=== PATIENT | female | born 1990 | race Caucasian/White ===

== ENCOUNTER 2016-08-30 03:14 | Inpatient (IN) | payer OTHER ==
[~2016-08-30] VITALS: Ht 154.9 cm; Wt 73.2 kg
[2016-08-30 03:25] VITALS: BP 115/58; PULSE 78; RESP 18
[2016-08-30 03:39] VITALS: Ht 154.9 cm; Wt 73.2 kg
[2016-08-30] MEDS ORDERED: OXYTOCIN 30 UNITS/LR 500 ML IV PRN (04:30)
[2016-08-30] MEDS ORDERED: OXYTOCIN 30 UNITS/LR 500 ML IV SCH ×3 (04:30→23:57)
[2016-08-30] MEDS ORDERED: MISOPROSTOL 200 MCG TAB PR PRN (04:30)
[2016-08-30] MEDS ORDERED: LIDOCAINE 1% (MPF) 30 ML INJ INJ PRN (04:30)
[2016-08-30] MEDS ORDERED: CARBOPROST 250 MCG INJ IM PRN (04:30)
[2016-08-30] MEDS ORDERED: LACTATED RINGER'S 1,000 ML IV PRN (04:30)
[2016-08-30] MEDS ORDERED: IBUPROFEN 600 MG TAB PO PRN (04:30)
[2016-08-30] MEDS ORDERED: BUTORPHANOL 2 MG INJ IV PRN (04:30)
[2016-08-30] MEDS ORDERED: METHYLERGONOVINE 0.2 MG INJ IM PRN (04:30)
[2016-08-30] MEDS: LACTATED RINGER'S 1,000 ML IV SCH ×3 (04:46→20:16)
[2016-08-30 05:44] LABS: ADD SCAN DIFF NO
--- NOTE | 2016-08-30 05:47 | TRIAGE ---
OB Triage Datetime Report Generated by CPN: 08/30/2016 05:47 Datetime: 08/30/2016 05:03 Monitor Mode: Palpation Quality: Moderate Resting Tone [place]: Relaxed Datetime: 08/30/2016 05:00 Stage of : Labor Labor Evaluation Frequency: 3-6 Monitor Mode: External Duration (sec)2399: 70-180 Quality: Moderate Pattern: Normal: <= 5 Contractions in 10 Minutes Resting Tone [place]: Relaxed Heart Rate FHR Baseline Rate: 145 Monitor Mode: External US Variability: Moderate 6-25 bpm Accelerations: 15X15 Decelerations: Early Pain Relief Measures: Comfort Measures Datetime: 08/30/2016 04:29 Stage of : Labor Assessment Type: Admission Assessment Maternal Assessment Level of Consciousness: Fully Conscious DTR's/Clonus: DTRs 2+; No Clonus Headache: Denies Blurred Vision: No Respiratory Effort: Unlabored; Regular Rhythm; Equal Expansion Breath Sounds, Left: Clear and Equal Breath Sounds, Right: Clear and Equal Nausea/Vomiting: Denies RUQ Epigastric Pain: Denies Lower Extremities Edema: None Degree: None Upper Extremities Edema: None Degree: None Facial Edema: None Temperature Route: Oral Fall Risk Assessment History of Falling: (0) No Secondary Diagnosis: (0) No Ambulatory Aid: (0) Bedrest/Nurse Assist IV Therapy: (0) No Gait: (0) Normal/Bedrest/Immobile Mental Status: (0) Oriented to Own Ability Fall Score: 0 Fall Risk Score Definition: No Risk: No action required Pain Assessment Pain Scale: 8 Pain Presence: Intermittent Pain Type: Cramping Pain Location: Abdomen Pain Goal: 4 Pain Relief Measures: Comfort Measures Membrane Status: Intact Datetime: 08/30/2016 04:20 Time of Arrival: 08/30/2016 04:20 EGA: 40.1 Arrived By: Ambulatory Arrived From: Other Unit in Hospital Datetime: 08/30/2016 04:19 Labor Evaluation Frequency: 2-5 Monitor Mode: External Duration (sec)2399: 60-100 Quality: Mild Pattern: Normal: <= 5 Contractions in 10 Minutes Resting Tone [place]: Relaxed Heart Rate FHR Baseline Rate: 135 Monitor Mode: External US FHR Baseline Changes: No Baseline Change Variability: Moderate 6-25 bpm Accelerations: 15X15 Decelerations: None Category: Category I Comments: Periods of loss of FHR contact d/t pt self-repositioning Datetime: 08/30/2016 03:47 Labor Evaluation Frequency: 2-5.5 Monitor Mode: External Duration (sec)2399: 70-120 Quality: Mild Pattern: Normal: <= 5 Contractions in 10 Minutes Resting Tone [place]: Relaxed Interventions: Sterile Vaginal Exam Heart Rate FHR Baseline Rate: 145 Monitor Mode: External US FHR Baseline Changes: No Baseline Change Variability: Moderate 6-25 bpm Decelerations: None Category: Category I Datetime: 08/30/2016 03:30 Stage of : OB Triage Time of Arrival: 08/30/2016 03:10 EGA: 40.1 Arrived By: Wheelchair Arrived From: Home Chief Complaint: CONTRACTIONS Movement: Present Contractions: Regular Time Contractions Began: 08/29/2016 22:30 Contractions: q5 minutes Rupture of Membranes: Denies Vaginal Bleeding: None Vaginal Discharge: Denies Recent Sexual Intercouse: Denies Abdominal Trauma: Not Applicable Patient Complaints: Contractions Additional Patient Complaints: CONTRACTIONS SINCE 2 DAYS AGO, PT REPORTS CONTRACTIONS BECOME STRON ABHILASH AND Q5 MINUTES SINCE 08/29 @ 2230 Time Provider Notified: 08/30/2016 03:40 Provider Notified: MD FITZGERALD Initial Plan: OBSERVATION, VE Vaginal Exam Dilatation (cms): 1.0 Effacement (%): 60 Station: -2 Exam By: MG Cervix, Position: Midposition Datetime: 08/30/2016 03:26 Stage of : OB Triage Datetime: 08/30/2016 03:25 Stage of : OB Triage Assessment Type: Triage Maternal Assessment Level of Consciousness: Fully Conscious DTR's/Clonus: DTRs 2+; No Clonus Headache: Denies Blurred Vision: No Respiratory Effort: Unlabored; Regular Rhythm; Equal Expansion Breath Sounds, Left: Clear and Equal Breath Sounds, Right: Clear and Equal Nausea/Vomiting: Denies RUQ Epigastric Pain: Denies Facial Edema: None Temperature Route: Oral Fall Risk Assessment History of Falling: (0) No Secondary Diagnosis: (0) No Ambulatory Aid: (0) Bedrest/Nurse Assist IV Therapy: (0) No Gait: (0) Normal/Bedrest/Immobile Mental Status: (0) Oriented to Own Ability Fall Score: 0 Fall Risk Score Definition: No Risk: No action required Pain Assessment Pain Scale: 8 Pain Presence: Intermittent Pain Type: Contraction Pain Location: Abdomen Pain Goal: 8 Pain Relief Measures: Comfort Measures
[2016-08-30 05:52] LABS: BASOPHILS % 0.2 % (0.0-2.0); EOSINOPHILS % 0.3 % (0.0-7.0); HEMATOCRIT 36.2 % (37.0-47.0); LYMPHOCYTES # 1.2 10^3/ul (0.8-2.9); LYMPHOCYTES % 10.6 % (15.0-51.0); MEAN CORPUSCULAR HEMOGLOBIN 31.3 pg (29.0-33.0); MEAN CORPUSCULAR HGB CONC 33.1 g/dl (32.0-37.0); MEAN CORPUSCULAR VOLUME 94.5 fl (82.0-101.0); MEAN PLATELET VOLUME 10.8 fl (7.4-10.4); MONOCYTE # 0.7 10^3/ul (0.3-0.9); MONOCYTES % 6.1 % (0.0-11.0); NEUTROPHIL # 9.1 10^3/ul (1.6-7.5); NEUTROPHILS % 81.8 % (39.0-77.0); PLATELET COUNT 213 10^3/UL (140-415); RED BLOOD COUNT 3.83 10^6/ul (4.20-5.40); RED CELL DISTRIBUTION WIDTH 13.8 % (11.5-14.5); WHITE BLOOD COUNT 11.1 10^3/ul (4.8-10.8)
[2016-08-30 06:16] LABS: INR 0.95; PROTIME 12.7 Sec (12.2-14.2)
[2016-08-30 06:17] LABS: PARTIAL THROMBOPLASTIN TIME 27.7 Sec (25.0-35.0)
--- NOTE | 2016-08-30 07:09 | HP ---
Date/Time of Note Date/Time of Note DATE: 08/30/16 TIME: 06:55 OB - History Hx of Present Free Text/Dictation 25y.o at 40wid came in with c/o uterine contractions every 3-6min in pain level 8/10. initial exam 1cm 60% -2 admitted for expectant management poss agumentaion for postdate Chief Complaint: uterine contractions Estimated Due Date: August 29, 2016 : 1 Para: 0 Spontaneous : 0 Therapeutic : 0 Care: Good Care Ultrasounds: Normal mid trimester US Obstetrical Complications: None Medical Complications: None Past Family/Social History * Past Medical, Surgical, Family and Obstetric Histories reviewed from chart. Blood Type: O+ Rubella: immune RPR/VDRL: Negative GBS Status: Negative HBsAG: Negative OB Admission Exam Vital Signs Vital Signs Vital Signs Date Time Temp Pulse Resp B/P Pulse Ox O2 Delivery O2 Flow Rate FiO2 08/30/16 03:25 97.5 78 18 115/58 Room Air Physical Exam HEENT: WNL Heart: Rhythm Normal Lungs: Clear, Equal Abdomen: WNL Extremities: Normal Reflexes: Normal Cervical Dilatation: 1cm Effacement: Other (60%) Station: -2 Membranes: Intact Amniotic Fluid: Unevaluable Heart Rate: 140's Accelerations: Accelerations Present Decelerations: No Decelerations Varibility: Moderate Contractions on Admission: < 5 Minutes Apart Intensity: Moderate Last 72 hours Lab Results CBC & BMP 08/30/16 04:40 OB Assessment/Plan Reason for admission: other (in early labor) Plan: Other (agumentation) RAMÍREZ FITZGERALD MD August 30, 2016 07:06
[2016-08-30] MEDS ORDERED: DINOPROSTONE 10 MG VAG SUPP VAG STA (08:46)
[2016-08-30] MEDS ORDERED: MINERAL OIL LIGHT 10 ML VIAL TOP PRN (09:00)
[2016-08-30] MEDS: DEXTROSE 5%-LR 1,000 ML IV SCH ×2 (13:31→21:30)
[2016-08-30] MEDS ORDERED: FENTAnyl 2MCG/ML-ROPIV 0.2% 100 ML ONE (14:04)
[2016-08-30] MEDS ORDERED: NALOXONE (0.4 MG/ML) INJ IV PRN (14:30)
[2016-08-30] MEDS ORDERED: KETOROLAC 30 MG INJ IV PRN (14:30)
[2016-08-30] MEDS ORDERED: DIPHENHYDRAMINE 50 MG INJ IV PRN (14:30)
[2016-08-30] MEDS ORDERED: PROCHLORPERAZINE 10 MG INJ IV PRN (14:30)
[2016-08-30] MEDS ORDERED: ONDANSETRON 4 MG INJ IV PRN (14:30)
[2016-08-30] MEDS ORDERED: HYDROmorphONE 1 MG/ML SYG IV PRN ×2 (14:30)
[2016-08-30] MEDS ORDERED: FENTAnyl 2MCG/ML-ROPIV 0.2% 100 ML BAG EPI SCH (14:30)
[2016-08-30] MEDS ORDERED: ACETAMINOPHEN 325 MG TAB PO PRN (17:00)
[2016-08-31] MEDS ORDERED: OXYTOCIN 30 UNITS/LR 500 ML IV PRN
[2016-08-31] MEDS ORDERED: OXYCODONE/ASPIRIN (4.88/325) TAB PO PRN
[2016-08-31] MEDS ORDERED: BENZOCAINE 20% 56 ML SPRAY TOP PRN
[2016-08-31] MEDS ORDERED: MISOPROSTOL 200 MCG TAB PR PRN
[2016-08-31] MEDS ORDERED: METHYLERGONOVINE 0.2 MG INJ IM PRN
[2016-08-31] MEDS ORDERED: CARBOPROST 250 MCG INJ IM PRN
--- NOTE | 2016-08-31 00:03 | LDN ---
Date/Time of Note Date/Time of Note DATE: 08/31/16 TIME: 00:01 Delivery Summary of a viable baby girl weighing 3080 grams or 6# 13 oz, 20.5" long, and with Apgars of 8/9. Weeks of Gestation 40w 1d Placenta Delivered: Spontaneously Meconium: Thick Episiotomy: No Perineal laceration: 2 Laceration repair: Second degree perineal laceration repaired with 2-0 chromic. Anesthesia type: Epidural Estimated blood loss: 200 Sponge & Needle done & correct: Yes All needle counts correct: Yes Any foreign bodies felt in the: No (vagina) Problems: Delivery Information Sex Infant Sex: female Apgars 1 Minute: 8 5 Minute: 9 Suctioning Nose & mouth suctioned at uriel: Yes Delee suction performed: No Umbilical Cord Umbilical cord with: 3 Vessels Cord presentations: no nuchal cord Cord Blood was obtained: Yes Mother & Baby Disposition Disposition Mom & Baby to Maternity; Good: Yes Baby to NICU: No GONZALEZ TANG MD August 31, 2016 00:03
[2016-08-31] MEDS: IBUPROFEN 600 MG TAB PO SCH ×4 (00:19→17:18)
[2016-08-31 01:05] VITALS: BP 108/57; PULSE 85; RESP 18
[2016-08-31] MEDS: LANOLIN 7 GM TUBE TOP PRN ×2 (01:43→17:21)
[2016-08-31 04:00] VITALS: BP 114/56; PULSE 81; RESP 18
[2016-08-31 08:50] VITALS: BP 114/74; PULSE 89; RESP 16
[2016-08-31 12:48] VITALS: BP 120/87; PULSE 85; RESP 16
[2016-08-31 16:10] VITALS: BP 118/71; PULSE 83; RESP 18
--- NOTE | 2016-08-31 17:42 | PN ---
Date/Time of Note Date/Time of Note DATE: 08/31/16 TIME: 17:41 OB Subjective Subjective Subjective day 0 Afebrile vitals stable abdomen soft uterus firm lochia normal extremity normal ambulation encouraged Current Medications Medications (Trade) Dose Ordered Sig/Ashtyn Route PRN Reason Start Time Stop Time Status Last Admin Dose Admin Lactated Ringer's (Lr) 1,000 ml @ 125 mls/hr Q8H IV 08/30/16 04:04 08/31/16 00:00 DC 08/30/16 20:16 Butorphanol Tartrate (Stadol) 2 mg Q2H PRN IV PAIN 08/30/16 04:30 08/31/16 00:00 DC 08/30/16 11:57 Lidocaine 30 ml 30 ml ONCE PRN INJ EPISIOTOMY/TEARING 08/30/16 04:30 08/31/16 00:00 DC Oxytocin/Lactated Ringer's 500 ml @ 125 mls/hr ONCE -MAY REPEAT X1 IV 08/30/16 04:30 08/31/16 00:00 DC 08/30/16 23:33 Oxytocin/Lactated Ringer's 500 ml @ 125 mls/hr ONCE IV 08/30/16 04:30 08/31/16 00:00 DC Ibuprofen 600 mg 600 mg ONCE PRN PO Mild Pain (Pain Score 1-3) 08/30/16 04:30 08/31/16 00:00 DC 08/30/16 23:33 Lactated Ringer's 1,000 ml @ 2,000 mls/hr Q30M PRN IV PRE-EPIDURAL BOLUS 08/30/16 04:30 08/31/16 00:00 DC Oxytocin/Lactated Ringer's 500 ml @ 0 mls/hr ONCE PRN IV For Hemorrhage Management 08/30/16 04:30 08/31/16 00:00 DC Methylergonovine Maleate (Methergine) 0.2 mg ONCE PRN IM VAGINAL BLEEDING 08/30/16 04:30 08/31/16 00:00 DC Carboprost Tromethamine (Hemabate) 250 mcg ONCE PRN IM VAGINAL BLEEDING 08/30/16 04:30 08/31/16 00:00 DC Misoprostol (Cytotec) 1,000 mcg ONCE PRN PA VAGINAL BLEEDING 08/30/16 04:30 08/31/16 00:00 DC Mineral Oil (Muri-Lube) ONCE PRN TOP at delivery 08/30/16 09:00 08/30/16 21:00 DC Dinoprostone 10 mg 10 mg ONCE STAT VAG 08/30/16 08:46 08/30/16 08:48 DC 08/30/16 08:59 Dextrose/Lactated Ringer's 1,000 ml @ 125 mls/hr Q8H IV 08/30/16 13:30 08/31/16 00:00 DC 08/30/16 13:31 Fentanyl/ Ropivacaine 100 ml @ STK-MED ONCE .ROUTE 08/30/16 14:04 08/30/16 14:05 DC Naloxone HCl (Narcan) 0.1 mg Q2M PRN IV FOR RESP RATE 8 OR LESS 08/30/16 14:30 08/31/16 00:01 DC Ketorolac Tromethamine (Toradol) 30 mg Q6H PRN IV PAIN 08/30/16 14:30 08/31/16 00:01 DC Hydromorphone HCl (Dilaudid) 0.2 mg Q3H PRN IV PAIN LEVEL 1-5 08/30/16 14:30 08/31/16 00:01 DC Hydromorphone HCl (Dilaudid) 0.4 mg Q3H PRN IV PAIN LEVEL 6-10 08/30/16 14:30 08/31/16 00:01 DC Diphenhydramine HCl (Benadryl) 25 mg Q6H PRN IV ITCHING 08/30/16 14:30 08/31/16 00:01 DC Ondansetron HCl (Zofran Inj) 4 mg Q6H PRN IV NAUSEA AND/OR VOMITING 08/30/16 14:30 08/31/16 00:01 DC Prochlorperazine (Compazine Inj) 10 mg ONCE PRN IV NAUSEA AND/OR VOMITING 08/30/16 14:30 08/31/16 00:01 DC Fentanyl/ Ropivacaine 100 ml EPIDURAL INFUSION EPI 08/30/16 14:30 08/31/16 00:01 DC Acetaminophen 650 mg 650 mg Q6H PRN PO PAIN AND OR ELEVATED TEMP 08/30/16 17:00 08/31/16 00:01 DC 08/30/16 17:02 Oxytocin/Lactated Ringer's 500 ml @ 125 mls/hr Q4H IV 08/30/16 23:57 08/31/16 03:56 DC 08/31/16 00:19 Ibuprofen (Motrin) 600 mg Q6 PO 08/31/16 00:00 08/31/16 17:18 Oxycodone/Aspirin (Percodan) 1 tab Q3H PRN PO PAIN LEVEL 1-5 08/31/16 00:00 Benzocaine (Dermoplast [place]) 1 spray BEDSIDE MEDICATION PRN TOP HEMORRHOID/EPISIOTMY PAIN 08/31/16 00:00 08/31/16 01:43 Lanolin (Dut-I-Ezsfxo) 1 applic BEDSIDE MEDICATION PRN TOP BEDSIDE FOR VICKY TO NIPPLES 08/31/16 00:00 08/31/16 17:21 Diphtheria/ Tetanus/Acell Pertussis 0.5 ml 0.5 ml ONCE ONCE IM* 09/01/16 09:00 09/01/16 09:01 Oxytocin/Lactated Ringer's 500 ml @ 0 mls/hr ONCE PRN IV For Hemorrhage Management 08/31/16 00:00 Methylergonovine Maleate (Methergine) 0.2 mg ONCE PRN IM VAGINAL BLEEDING 08/31/16 00:00 Carboprost Tromethamine (Hemabate) 250 mcg ONCE PRN IM VAGINAL BLEEDING 08/31/16 00:00 Misoprostol (Cytotec) 1,000 mcg ONCE PRN PA VAGINAL BLEEDING 08/31/16 00:00 TEGAN MOSCOSO MD August 31, 2016 17:42
[2016-08-31 20:20] VITALS: BP 118/65; PULSE 76; RESP 18
[2016-09-01 04:30] VITALS: BP 110/70; PULSE 78; RESP 18
[2016-09-01] MEDS: IBUPROFEN 600 MG TAB PO SCH ×3 (06:38→12:00)
[2016-09-01 08:00] VITALS: BP 106/53; PULSE 74; RESP 18
[2016-09-01 08:46] LABS: ADD SCAN DIFF NO
[2016-09-01 08:56] LABS: BASOPHILS % 0.1 % (0.0-2.0); EOSINOPHILS # 0.1 10^3/ul (0.0-0.5); EOSINOPHILS % 0.5 % (0.0-7.0); HEMATOCRIT 33.8 % (37.0-47.0); HEMOGLOBIN 10.9 g/dl (12.0-16.0); LYMPHOCYTES # 1.1 10^3/ul (0.8-2.9); LYMPHOCYTES % 8.8 % (15.0-51.0); MEAN CORPUSCULAR HEMOGLOBIN 31.1 pg (29.0-33.0); MEAN CORPUSCULAR HGB CONC 32.2 g/dl (32.0-37.0); MEAN CORPUSCULAR VOLUME 96.3 fl (82.0-101.0); MEAN PLATELET VOLUME 10.8 fl (7.4-10.4); MONOCYTE # 0.7 10^3/ul (0.3-0.9); MONOCYTES % 5.4 % (0.0-11.0); NEUTROPHIL # 10.4 10^3/ul (1.6-7.5); NEUTROPHILS % 84.6 % (39.0-77.0); PLATELET COUNT 193 10^3/UL (140-415); RED BLOOD COUNT 3.51 10^6/ul (4.20-5.40); RED CELL DISTRIBUTION WIDTH 14.1 % (11.5-14.5); WHITE BLOOD COUNT 12.2 10^3/ul (4.8-10.8)
[2016-09-01] MEDS ORDERED: DIPHTH/TET/ACEL PERTUSS (ADULT) 0.5 ML VIAL IM* ONE (09:00)
--- NOTE | 2016-09-01 15:57 | PD.PPDC ---
[facility] Discharge Instruction Condition Patient Condition: Good Diet Diet: Resume Regular Diet Activity/Restrictions Restrictions: No Exercising No Lifting No Driving No Sexual Activity Nothing in the Vagina No [place] No Tampons, douche Follow-up Follow-up with Physician: 2, Week/Weeks Provider Information: Appointment clinic in 2 weeks for check Return to clinic for [facility] Instructions: Fever greater than 101 Chills Worsening abdominal pain Excessive Vaginal Bleeding More than 2 pads per hour Unable to tolerate diet OB Instructions: Breast Tenderness Depression Blurried Vision Headache TEGAN MOSCOSO MD September 01, 2016 15:57
--- NOTE | 2016-09-01 15:59 | DS ---
Date/Time of Note Date/Time of Note DATE: 09/01/16 TIME: 15:57 Discharge Summary Admission/Discharge Info Admit Date/Time August 30, 2016 at 04:00 Discharge Date/Time September 01, 2016 at 1600 Final Diagnosis Post normal vaginal delivery day 2 Patient Condition: Good Procedures Normal spontaneous vaginal delivery Hx of Present Illness Term Hospital Course Satisfactory uneventful Follow-up Plan Appointment clinic in 2 weeks for check Primary Care Provider [facility] Time spent on discharge: < 30 minutes Pending Labs Laboratory Tests Test 09/01/16 08:00 White Blood Count 12.210^3/ul (4.8-10.8) Red Blood Count 3.5110^6/ul (4.20-5.40) Hemoglobin 10.9g/dl (12.0-16.0) Hematocrit 33.8% (37.0-47.0) Mean Corpuscular Volume 96.3fl (82.0-101.0) Mean Corpuscular Hemoglobin 31.1pg (29.0-33.0) Mean Corpuscular Hemoglobin Concent 32.2g/dl (32.0-37.0) Red Cell Distribution Width 14.1% (11.5-14.5) Platelet Count 16162^3/UL (140-415) Mean Platelet Volume 10.8fl (7.4-10.4) Neutrophils % 84.6% (39.0-77.0) Lymphocytes % 8.8% (15.0-51.0) Monocytes % 5.4% (0.0-11.0) Eosinophils % 0.5% (0.0-7.0) Basophils % 0.1% (0.0-2.0) Nucleated Red Blood Cells % 0.0/100WBC (0.0-0.0) Neutrophils # 10.410^3/ul (1.6-7.5) Lymphocytes # 1.110^3/ul (0.8-2.9) Monocytes # 0.710^3/ul (0.3-0.9) Eosinophils # 0.110^3/ul (0.0-0.5) Basophils # 0.010^3/ul (0.0-0.1) Nucleated Red Blood Cells # 0.010^3/ul (0.0-0.0) TEGAN MOSCOSO MD September 01, 2016 15:59
[2016-09-01 16:00] VITALS: BP 114/66; PULSE 86; RESP 18
== END 2016-09-01 18:20 | disposition home or self-care (01) | DRG 775 ==
LOC: OBT 03:14 → L-D 03:14 → OBT 04:00 → L-D 04:00 → PP1 08-31 01:11
PROVIDERS: ADMIT Obstetrics & Gynecology; ATTEND Obstetrics & Gynecology
PROC: 10E0XZZ Delivery of Products of Conception, External Approach (ICD-10-PCS; principal; 2016-08-31)
PROC: 0KQM0ZZ Repair Perineum Muscle, Open Approach (ICD-10-PCS; 2016-08-31)
DX: O70.1 Second degree perineal laceration during delivery (principal); Z37.0 Single live birth; O77.0 Labor and delivery complicated by meconium in amniotic fluid; Z3A.40 40 weeks gestation of pregnancy
CPT/HCPCS: 62319; 85025; 85610; 85730; 86592; 86900; 86901; 87340; 90715; 99464; G0463; J0595; J2590; J3010; J7120; J7121